=== PATIENT | female | born 1975 | race Caucasian/White ===

== ENCOUNTER 2024-03-01 13:03 | Emergency (ER) | payer BC ==
[~2024-03-01] VITALS: Ht 157.5 cm; Wt 53.3 kg
[2024-03-01 13:09] VITALS: BP 145/96; PULSE 72; RESP 16; TEMP 98; O2SAT 96
[2024-03-01] MEDS: TETanus/Pertussis (Acell)/Diphther VAC/PF (Tdap-Adult) 0.5ml syringe IMVAC ONE (13:42)
== END 2024-03-01 13:47 | disposition home or self-care (01) ==
LOC: ER 13:04
DX: S61.211A Laceration without foreign body of left index finger without damage to nail, initial encounter (principal); Z79.899 Other long term (current) drug therapy; X58.XXXA Exposure to other specified factors, initial encounter; Y93.89 Activity, other specified; Y92.89 Other specified places as the place of occurrence of the external cause; Y99.8 Other external cause status
CPT/HCPCS: 90471; 90715; 99283